=== PATIENT | female | born 1995 | race Caucasian/White ===

== ENCOUNTER 2018-09-29 21:11 | Emergency (ER) | payer OTHER ==
[2018-09-29] MEDS ORDERED: MORPHINE SULFATE 2 MG/ML SYRINGE IVP STA (22:39)
--- NOTE | 2018-09-29 22:48 | CT ---
EXAMINATION TYPE: CT mastoid wo con DATE OF EXAM: 09/29/2018 COMPARISON: None HISTORY: left ear pain CT DLP: 160.2 mGycm. Automated Exposure Control for Dose Reduction was Utilized. TECHNIQUE: CT scan of internal auditory canal is performed without contrast, thin cut axial images ar e obtained, coronal reformatted images are also reviewed. FINDINGS: There is mucosal thickening in the maxillary and ethmoid sinuses. There is fairly normal ae ration of the mastoid air cells. Temporal bones are intact. The external auditory canals appear elmer l on the right side and show significant narrowing on the left side. There is extensive opacification of the left middle ear cavity and left side epitympanic recess. I see no focal bone destruction. Aby icircular canals are symmetric. Cochlea are symmetric. IMPRESSION: Exam shows evidence of otitis externa and otitis interna with opacification of most of the left middl e ear cavity and the epitympanic recess. Maxillary and ethmoid sinusitis.
[2018-09-29 23:00] LABS: Basophils # (A) 0.1 k/uL (0-0.2); Basophils % (A) 0 %; Eosinophils # (A) 0.2 k/uL (0-0.7); Eosinophils % (A) 2 %; HCT 44.4 % (34.0-46.0); Lymphocytes # (A) 2.2 k/uL (1.0-4.8); Lymphocytes % (A) 20 %; MCH 29.2 pg (25.0-35.0); MCHC 33.8 g/dL (31.0-37.0); MCV 86.3 fL (80.0-100.0); Mean Platelet Volume 6.6; Monocytes # (A) 0.6 k/uL (0-1.0); Monocytes % (A) 5 %; Neutrophils # (A) 8.2 k/uL (1.3-7.7); Neutrophils % (A) 72 %; Platelet Count 197 k/uL (150-450); RBC 5.15 m/uL (3.80-5.40); RDW 12.9 % (11.5-15.5); WBC 11.5 k/uL (3.8-10.6)
[2018-09-29] MEDS ORDERED: cefTRIAXone 1,000 MG VIAL (IM USE) IM STA (23:06)
[2018-09-29] MEDS ORDERED: ACET/COD 300 MG/30 MG STARTER PACK 6 TAB BTL PO STA (23:07)
[2018-09-29] MEDS ORDERED: OFLOXACIN 0.3% OPHTH DROPS 5 ML BOTTLE LEFT EAR STA (23:07)
[2018-09-29 23:09] LABS: ALT 70 U/L (9-52); AST 38 U/L (14-36); Albumin 4.9 g/dL (3.5-5.0); Alkaline Phosphatase 63 U/L (38-126); Anion Gap 10 mmol/L; Blood Urea Nitrogen 10 mg/dL (7-17); Calcium 9.9 mg/dL (8.4-10.2); Carbon Dioxide 26 mmol/L (22-30); Chloride 106 mmol/L (98-107); Glucose 97 mg/dL (74-99); Sodium 142 mmol/L (137-145); Total Bilirubin 0.5 mg/dL (0.2-1.3); Total Protein 8.2 g/dL (6.3-8.2)
--- NOTE | 2018-09-29 23:28 | ED ---
ENT HPI - General Chief complaint: ENT Stated complaint: Ear pain/nausea Time Seen by Provider: 09/29/18 22:10 Source: patient Mode of arrival: ambulatory Limitations: no limitations - History of Present Illness Initial comments: 23-year-old female with no past medical history presenting today for chief complaint of left ear pain. Patient states that she began experiencing left ear pain 5 days ago, she states she does have an intention with coronary ears is not sure if she went to fire the Q-tip. She presented to urgent care yesterday for worsening left ear pain where she was diagnosed with otitis media with perforation as well as otitis externa. Patient was started on azithromycin as well as Antibiotic drops for otitis externa. Patient states that since the ear pain has been worsening. Patient does admit to chills, denies fever. Patient denies any night sweats, malaise, sore throat, chest pain , dyspnea, headache. Patient states that the pain became intolerable and she presents today for evaluation. Patient denies any ear drainage or hearing loss. Remainder was negative, patient denies any recent shortness of breath, chest pain, back pain, abdominal pain, nausea or vomiting, numbness or tingling , dysuria or hematuria, constipation or diarrhea, headaches or visual changes, or any other complaints. Upon arrival patient appears uncomfortable. Blood pressure elevated. Remainder of vital signs within acceptable limits. - Related Data Previous Rx's Medication Instructions Recorded Ofloxacin 0.3% Otic Soln [Floxin 10 drops LEFT EAR DAILY 7 Days #1 09/30/18 0.3% Otic Soln] bottle Allergies Allergy/AdvReac Type Severity Reaction Status Date / Time Penicillins Allergy Rash/Hives Verified 09/29/18 21:21 Sulfa (Sulfonamide Allergy Hallucinati Verified 09/29/18 21:21 Antibiotics) ons Review of Systems ROS Statement: Those systems with pertinent positive or pertinent negative responses have been documented in the HPI. ROS Other: All systems not noted in ROS Statement are negative. Constitutional: Reports: chills. Denies: fever Eyes: Denies: eye pain ENT: Reports: ear pain. Denies: throat pain, dental pain, hearing loss, epistaxis Respiratory: Denies: cough, dyspnea, wheezes, hemoptysis, stridor Cardiovascular: Denies: chest pain, palpitations Gastrointestinal: Denies: abdominal pain, nausea, vomiting, diarrhea, constipation Genitourinary: Denies: urgency, dysuria Musculoskeletal: Denies: back pain Skin: Denies: rash, lesions, change in color Neurological: Denies: headache, weakness, numbness, paresthesias, confusion Past Medical History Additional Past Medical History / Comment(s): migraine History of Any Multi-Drug Resistant Organisms: None Reported Additional Past Surgical History / Comment(s): sewing needle removed from foot. Past Psychological History: No Psychological Hx Reported Smoking Status: Current every day smoker Past Alcohol Use History: None Reported Past Drug Use History: None Reported General Exam - General Exam Comments Initial Comments: General: The patient is awake and alert, in no distress, and does not appear acutely ill. Eye: Pupils are equal, round and reactive to light, extra-ocular movements are intact. No nystagmus. There is normal conjunctiva bilaterally. No signs of icterus. Ears, nose, mouth and throat: There are moist mucous membranes and no oral lesions. Left external auditory exam revealed erythema and edema-no drainage. TM limited visualization secondary to edema of the EAC. Right EAC WNL no erythema or edema. Tympanic membranes the right ear nonerythematous no retractions bulging effusions or tobacco number perforation. Patient is tender to palpation of the left mastoid, no erythema or swelling noted. No tenderness to palpation of the right mastoid. Neck: The neck is supple, there is no tenderness or JVD. No palpable anterior cervical lymph node the. Cardiovascular: There is a regular rate and rhythm. No murmur, rub or gallop is appreciated. Respiratory: Lungs are clear to auscultation, respirations are non-labored, breath sounds are equal. No wheezes, stridor, rales, or rhonchi. Musculoskeletal: Normal ROM, no tenderness. Strength 5/5. Sensation intact. Pulses equal bilaterally 2+. Neurological: A&O x 3. CN II-XII intact, There are no obvious motor or sensory deficits. Coordination appears grossly intact. Speech is normal. Skin: Skin is warm and dry and no rashes or lesions are noted. Psychiatric: Cooperative, appropriate mood & affect, normal judgment. Limitations: no limitations Course Vital Signs 09/29/18 09/30/18 09/30/18 21:18 00:05 00:49 Temperature 98.7 F 100 F H Pulse Rate 98 96 84 Respiratory 20 20 18 Rate Blood Pressure 147/100 118/60 122/59 O2 Sat by Pulse 99 99 97 Oximetry Medical Decision Making - Medical Decision Making CT of the mastoid negative for mastoiditis. There is findings concerning for otitis media and externa. Patient is not diabetic. External auditory canals patent. Patient dropped be changed to ofloxacin which is safe for TM perforation. Patient was instructed to continue to take azithromycin as directed for otitis media. Patient pain controlled with 8 mg of morphine throughout stay, patient did note significant improvement upon multiple reexaminations-lacerated examination patient resting comfortably. Patient given several packets of Tylenol 3 for further pain management, discussed at length the risks associated with tylenol #3 including addiction, overdose and . I did recommend close follow-up with ears nose throat as well as strict return parameters for worsening symptoms. Patient verbalized understanding of this plan. I discussed the case at length with Dr. Miller who agrees impression and plan. No further instruction at this time. Patient will be discharged with plan as discussed. No questions at this time. Patient verbalized understanding return parameters. She given a note for work. - Lab Data Result diagrams: 09/29/18 22:43 09/29/18 22:43 Lab Results 09/29/18 09/29/18 Range/Units 22:43 22:43 WBC 11.5 H (3.8-10.6) k/uL RBC 5.15 (3.80-5.40) m/uL Hgb 15.0 (11.4-16.0) gm/dL Hct 44.4 (34.0-46.0) % MCV 86.3 (80.0-100.0) fL MCH 29.2 (25.0-35.0) pg MCHC 33.8 (31.0-37.0) g/dL RDW 12.9 (11.5-15.5) % Plt Count 197 (150-450) k/uL Neutrophils % 72 % Lymphocytes % 20 % Monocytes % 5 % Eosinophils % 2 % Basophils % 0 % Neutrophils # 8.2 H (1.3-7.7) k/uL Lymphocytes # 2.2 (1.0-4.8) k/uL Monocytes # 0.6 (0-1.0) k/uL Eosinophils # 0.2 (0-0.7) k/uL Basophils # 0.1 (0-0.2) k/uL Sodium 142 (137-145) mmol/L Potassium 4.0 (3.5-5.1) mmol/L Chloride 106 (98-107) mmol/L Carbon Dioxide 26 (22-30) mmol/L Anion Gap 10 mmol/L BUN 10 (7-17) mg/dL Creatinine 0.65 (0.52-1.04) mg/dL Est GFR (CKD-EPI)AfAm >90 (>60 ml/min/1.73 sqM) Est GFR (CKD-EPI)NonAf >90 (>60 ml/min/1.73 sqM) Glucose 97 (74-99) mg/dL Calcium 9.9 (8.4-10.2) mg/dL Total Bilirubin 0.5 (0.2-1.3) mg/dL AST 38 H (14-36) U/L ALT 70 H (9-52) U/L Alkaline Phosphatase 63 (38-126) U/L Total Protein 8.2 (6.3-8.2) g/dL Albumin 4.9 (3.5-5.0) g/dL Disposition Clinical Impression: Otitis externa, Otitis media Disposition: HOME SELF-CARE Condition: Good Instructions: Otitis Externa (ED), Ear Infection (ED) Additional Instructions: Please use medication as discussed, no operating machinery, driving or working under the influence of Tylenol 3. Continue the azithromycin as directed. Please follow-up with ENT in the next 1-2 days. Please return to emergency room if the symptoms increase or worsen or for any other concerns,as discussed. Prescriptions: Ofloxacin 0.3% Otic Soln [Floxin 0.3% Otic Soln] 10 drops LEFT EAR DAILY 7 Days #1 bottle Is patient prescribed a controlled substance at d/c from ED?: No Referrals: None,Stated [Primary Care Provider] - 1-2 days Adam Agudelo DO [Doctor of Osteopathic Medicine] - 1-2 days Time of Disposition: 23:27
[2018-09-29] MEDS ORDERED: cefTRIAXone 2,000 MG in SODIUM CHLORIDE 0.9% 100 ML IVPB STA (23:34)
[2018-09-29] MEDS ORDERED: MORPHINE SULFATE 4 MG/ML SYRINGE IVP STA (23:57)
[2018-09-30] MEDS ORDERED: KETOROLAC 30 MG/ML 1 ML VIAL IVP STA (00:39)
[2018-09-30 00:50] VITALS: BP 122/59; PULSE 84; RESP 18; TEMP 100
== END 2018-09-30 00:57 | disposition home or self-care (01) ==
LOC: EC 21:11
DX: H60.92 Unspecified otitis externa, left ear (principal); H66.92 Otitis media, unspecified, left ear; F17.200 Nicotine dependence, unspecified, uncomplicated; Z88.0 Allergy status to penicillin; Z88.2 Allergy status to sulfonamides
CPT/HCPCS: 36415; 80053; 85025; 70486; 99283; 96365; 96375 ×2; 96376; J2270 ×2; J0696; J1885